=== PATIENT | female | born 1970 | race African-American/Black ===

== ENCOUNTER 2017-09-05 09:04 | Day surgery (SDC) | payer OTHER ==
[2017-09-03 17:46] VITALS: BMI 34.4
[2017-09-05 10:06] LABS: BASO % 0.5 % (0-2.0); HEMATOCRIT 41.5 % (32.4-45.2); HEMOGLOBIN 13.7 GM/dL (10.7-15.3); LYMPH % 43.8 % (8-40); MCH 31.8 pg (25.7-33.7); MCHC 32.9 g/dl (32.0-36.0); MEAN CELL VOLUME 96.6 fl (80-96); MEAN PLT VOLUME 7.6 fl (7.5-11.1); MONO % 7.4 % (3.8-10.2); NEUT % 46.3 % (42.8-82.8); PLATELET COUNT 280 K/MM3 (134-434); WHITE BLOOD COUNT 6.9 K/mm3 (4.0-10.0)
[2017-09-05 10:17] LABS: INR 0.99 (0.82-1.09); PROTHROMBIN TIME (PATIENT) 11.2 SEC (9.7-13.0)
[2017-09-05 18:07] VITALS: BP 102/60; PULSE 60
[2017-09-05 18:13] VITALS: TEMP 98.3
== END 2017-09-05 15:45 | disposition home or self-care (01) ==
LOC: JRADIR 09:04
PROVIDERS: ATTEND Psychiatry & Neurology Neurology
PROC: 009U3ZX Drainage of Spinal Canal, Percutaneous Approach, Diagnostic (ICD-10-PCS; principal; 2017-09-05)
PROC: B01BZZZ Fluoroscopy of Spinal Cord (ICD-10-PCS; 2017-09-05)
DX: G43.909 Migraine, unspecified, not intractable, without status migrainosus (principal)
CPT/HCPCS: 36415; 62272; 76000-TC-FY; 77002-TC-FY; 84703; 85025; 85610